=== PATIENT | female | born 1995 | race Caucasian/White ===

== ENCOUNTER 2017-04-27 11:06 | Emergency (ER) | payer OTHER ==
[~2017-04-27] VITALS: Ht 170.2 cm; Wt 76.0 kg
[~2017-04-27 11:06] MED LIST: IBUP-1050 PO; LITH150C6 PO; PENT100C6 PO; UNKNOWN ANTIBIOTIC PO; VENL150C PO
[2017-04-27 11:08] VITALS: BP 131/95; PULSE 108; TEMP 36.5; O2SAT 98; Ht 170.2 cm; Wt 76.0 kg
[2017-04-27] MEDS ORDERED: DULO60CA44 PO (11:58)
--- NOTE | 2017-04-27 12:34 | DIAGNOSTIC IMAGING REPORT ---
L ANKLE MIN 3 VIEWS ROUTINE CLINICAL HISTORY: L ankle pain pain COMPARISON: None. DISCUSSION: The bones and joint spaces appear intact. There is no evidence of fracture, dislocation or bony disease. Mild lateral malleolar soft tissue edema IMPRESSION: Lateral soft tissue edema. No acute bony abnormality. The above report was generated using voice recognition software. It may contain grammatical, syntax or spelling errors. Electronically signed by: Gregory Herrera M.D. 04/27/2017 12:33 PM Dictated Date/Time: 04/27/2017 12:32 PM
--- NOTE | 2017-04-27 18:02 | EMERGENCY ROOM VISIT NOTE ---
ED Visit Note First contact with patient: 11:13 CHIEF COMPLAINT: Left ankle pain. HISTORY OF PRESENT ILLNESS: Ms. Mike is a 21-year old white female who ambulates into the ED accompanied by female friend complaining of left ankle pain. Historically patient reports she has had no previous significant injuries or surgeries to the right ankle/foot. She reports approximately 12 hours ago she walking down the street and texting. She reports she tripped over a curb. Since that time she has been having pain over the lateral and medial aspect of the left ankle. She describes her pain as a sharp and throbbing sensation. She rates the pain a 7/10. Pain is nonradiating. Pain increases with palpation, ambulation, inversion. She has treated the pain with ibuprofen prior to arrival at the hospital and has had moderate relief of pain. She denies any associated hip pain, knee pain, leg weakness/numbness/tingling. REVIEW OF SYSTEMS: As noted above in History of Present Illness. PAST MEDICAL HISTORY: Bronchitis, unspecified urinary surgery, interstitial cystitis, depression, anxiety, status post myringotomy, tubal ligation and tonsillectomy. CURRENT MEDICATIONS: Cymbalta, ibuprofen. ALLERGIES TO MEDICATIONS: Meningococcal vaccinations. SOCIAL HISTORY: Patient is currently employed; she feels safe in her home environment; she denies tobacco use and admits to alcohol use. PHYSICAL EXAM: Vital Signs: Date Time Temp Pulse Resp B/P (MAP) Pulse Ox O2 Delivery O2 Flow Rate FiO2 04/27/17 11:08 36.5 108 16 131/95 98 General: 21 year old female in mild distress due to pain, nontoxic appearing, afebrile and hemodynamically stable. Neurological: Awake, alert, oriented to person place and time. Answering questions appropriately and following commands. Skin: Warm dry and pink. Soft tissue injury: Moderate swelling and ecchymosis around the lateral aspect of the ankle. There is also a few superficial abrasions. Left Lower Extremity: No gross junior deformities. No tenderness in the hip or knee. Tenderness over the medial and lateral malleolus over the anterior and inferior ligamentous structures around the malleolus. There is no bony deformity. She has pain with stressing of the ligamentous structures but I do not feel any laxity. She does have full range of motion in plantarflexion and dorsiflexion of the ankle. No tenderness throughout the foot or toes. Throughout the foot the skin is pink and warm with brisk capillary refill. Able to distinguish light sensations through all dermatomes of the foot. ED COURSE: Patient is assessed as noted above. Patient's medication list was reviewed. Left ankle X-Rays: Were read by myself and the radiologist showing no acute fractures or dislocations. Patient is given ice for pain, swelling and comfort; patient was offered pain medications and refused. Patient is placed in a gel splint and is instructed on crutch use. Patient is educated about his/her condition and instructed on her treatment plan ; she verbalizes understanding and agreement with the our plan. CLINICAL IMPRESSION: Left ankle sprain. DISPOSITION: Patient is discharged to home in stable condition accompanied by female friend; prior to departure she was reassessed and subjectively reported she was pain-free. PLAN: Comfort measures were discussed with the patient. Patient was encouraged to follow-up with an orthopedic physician if no better in 7 to 10 days. Patient was encouraged to return emergency department as needed for increasing pain or swelling, leg/foot weakness/numbness/tingling or any new/concerning symptoms..
== END 2017-04-27 12:48 | disposition home or self-care (01) ==
LOC: C.EDB 11:08 → C.EDD 12:48
DX: S93.402A Sprain of unspecified ligament of left ankle, initial encounter (principal); X58.XXXA Exposure to other specified factors, initial encounter; F41.9 Anxiety disorder, unspecified; F32.9 Major depressive disorder, single episode, unspecified